=== PATIENT | female | born 1995 | race Caucasian/White ===

== ENCOUNTER 2016-10-11 16:43 | Emergency (ER) | payer OTHER ==
[~2016-10-11] VITALS: Ht 170.2 cm; Wt 74.0 kg
[2016-10-11] MEDS ORDERED: SILVADENE20 GM TP (18:24)
[2016-10-11] MEDS ORDERED: ATARAX,VISTARIL50 MG PO (18:24)
[2016-10-11 18:55] VITALS: BP 141/67
== END 2016-10-11 18:55 | disposition home or self-care (01) ==
LOC: EME 16:43
DX: L55.0 Sunburn of first degree (principal)
CPT/HCPCS: 99281; 99283

== ENCOUNTER 2017-07-13 14:56 | Emergency (ER) | payer OTHER ==
[~2017-07-13] VITALS: Ht 170.2 cm; Wt 67.5 kg
[~2017-07-13 14:56] MED LIST: ATARAX,VISTARIL50 MG PO; SILVADENE20 GM TP
[2017-07-13 15:37] LABS: HEMATOCRIT 40.7 % (36.0-46.0); HEMOGLOBIN 13.4 G/DL (11.9-15.5); MCH 32.6 PG (29.0-34.0); MCHC 32.9 G/DL (30.0-36.0); PLATELET COUNT 220 K/uL (156-360); RBC DIS.WIDTH-CV 12.5 % (11.8-14.6); RBC DIS.WIDTH-SD 45.2 % (39-53); RED BLOOD COUNT 4.11 M/uL (3.80-5.20); WHITE BLOOD COUNT 9.5 K/uL (4.1-10.2)
[2017-07-13 15:51] LABS: ALBUMIN 4.7 g/dL (3.2-4.8); CHLORIDE 105 mEq/L (99-109); POTASSIUM 4.5 mEq/L (3.7-5.4); SODIUM 140 mEq/L (136-147)
[2017-07-13 15:53] LABS: GLUCOSE 87 mg/dL (70-99); TOTAL PROTEIN 7.3 g/dL (6.4-8.3)
[2017-07-13 15:55] LABS: TOTAL BILIRUBIN 0.5 mg/dL (0.0-1.0)
[2017-07-13 15:57] LABS: ALKALINE PHOSPHATASE 54 IU/L (3-129); GFR ESTIMATE (CALCULATED) > 59 mL/min/
[2017-07-13 15:58] LABS: UREA NITROGEN (BUN) 12 mg/dL (9-23)
[2017-07-13 15:59] LABS: AST (GOT) 46 IU/L (2-34)
[2017-07-13 16:00] LABS: ALT (GPT) 37 IU/L (3-49)
[2017-07-13 16:07] LABS: QUANTITATIVE HCG < 4.0 MIU/ML
[2017-07-13 17:45] LABS: LIPASE 9 U/L (1.0-51.0)
[2017-07-13 18:19] LABS: APPEARANCE CLEAR ((CLEAR)); BILIRUBIN NEGATIVE; BLOOD NEGATIVE; COLOR YELLOW ((YELLOW)); GLUCOSE (STRIP) NEGATIVE; KETONES 20; LEUKOCYTES NEGATIVE; NITRITE NEGATIVE; PROTEIN (STRIP) NEGATIVE; SPECIFIC GRAVITY 1.016 (1.000-1.030); UCUL ADDED? NO; UROBILINOGEN 0.2 MG/DL (0.2-1.0)
[2017-07-13] MEDS ORDERED: CITRATE OF MAG296 ML PO (19:13)
[2017-07-13] MEDS ORDERED: BENTYL20 MG PO (19:14)
[2017-07-13 19:23] VITALS: BP 139/83
== END 2017-07-13 19:24 | disposition home or self-care (01) ==
LOC: EME 14:56
DX: R10.32 Left lower quadrant pain (principal); F17.200 Nicotine dependence, unspecified, uncomplicated; Z88.1 Allergy status to other antibiotic agents
CPT/HCPCS: 74019; 76856; 80053; 81003; 83690; 84702; 85027; 99281; 99284